=== PATIENT | female | born 1945 | race Caucasian/White ===

== ENCOUNTER 2022-01-19 11:25 | Emergency (ER) | payer BC ==
[~2022-01-19] VITALS: Ht 149.9 cm; Wt 70.3 kg
[2022-01-19 11:43] VITALS: BP_SYST 126
[2022-01-19] MEDS ORDERED: KETOROLAC TROMETHAMINE 30 MG VIAL IM ONE (14:30)
[2022-01-19] MEDS ORDERED: ACET325T PO (15:21)
== END 2022-01-19 16:29 | disposition home or self-care (01) ==
LOC: SED 11:25
DX: S20.212A Contusion of left front wall of thorax, initial encounter (principal); S70.02XA Contusion of left hip, initial encounter; W01.198A Fall on same level from slipping, tripping and stumbling with subsequent striking against other object, initial encounter; Y93.89 Activity, other specified; Y92.89 Other specified places as the place of occurrence of the external cause; Y99.8 Other external cause status
CPT/HCPCS: 71100; 73502; 96372; 99284